=== PATIENT | female | born 1990 | race Caucasian/White ===

== ENCOUNTER 2022-09-18 12:03 | Emergency (ER) | payer MEDICAID ==
[~2022-09-18] VITALS: Ht 165.1 cm; Wt 59.0 kg
[2022-09-18] MEDS ORDERED: HYDROCODONE/ACETAMINOPHEN 5/325MG TABLET PO STA (12:20)
[2022-09-18] MEDS ORDERED: BACITRACIN ZINC OINT UDPKT TOP ONE (12:30)
[2022-09-18 17:45] VITALS: BP 132/72
== END 2022-09-19 09:26 | disposition home or self-care (01) ==
LOC: ER 12:16
DX: S22.31XA Fracture of one rib, right side, initial encounter for closed fracture (principal); S52.692A Other fracture of lower end of left ulna, initial encounter for closed fracture; S00.81XA Abrasion of other part of head, initial encounter; S00.512A Abrasion of oral cavity, initial encounter; S80.12XA Contusion of left lower leg, initial encounter; S80.11XA Contusion of right lower leg, initial encounter; R51.9 Headache, unspecified; S80.812A Abrasion, left lower leg, initial encounter; S80.811A Abrasion, right lower leg, initial encounter; S40.812A Abrasion of left upper arm, initial encounter; S40.811A Abrasion of right upper arm, initial encounter; M79.641 Pain in right hand; T74.11XA Adult physical abuse, confirmed, initial encounter; Y07.03 Male partner, perpetrator of maltreatment and neglect; Y04.2XXA Assault by strike against or bumped into by another person, initial encounter; Y93.89 Activity, other specified; Y92.018 Other place in single-family (private) house as the place of occurrence of the external cause
CPT/HCPCS: 29105; 70450; 71045; 73090; 73130; 73590; 99284; Z7610; A4565